=== PATIENT | male | born 1955 | race Caucasian/White ===

== ENCOUNTER 2017-04-27 17:32 | Inpatient (IN) | payer BC, OTHER ==
--- NOTE | 2017-04-27 17:43 | DR.GENAD ---
HPI - Complaint/Symptoms Chief Complaint Doctors Comments: According to family patient drinks on special occasions. Today he drank 3x32 oz of beer. He is now intoxicated and has been vomiting. He has alcoholic liver disease according to family member. PMH of hypertension PMH - PMH Past Medical History: Hypertension Past Surgical History: Yes Surgical History: Ortho Surgery, Tonsillectomy - Family History Family Medical History: Cancer, Heart Failure - Social History Do you use any recreational Drugs:: No ROS - Review of Systems Eyes: No Symptoms Reported ENTM: No Symptoms Reported Respiratoy: No Symptoms Reported Cardiovascular: No Symptoms Reported Gastrointestinal/Abdominal: No Symptoms Reported Genitourinary: No Symptoms Reported Neurological: No Symptoms Reported Musculoskeletal: No Symptoms Reported Integumentary: No Symptoms Reported Hematologic/Lymphatic: No Symptoms Reported Endocrine: No Symptoms Reported Psychiatric: No Symptoms Reported All Other Systems: Reviewed and Negative PE - Vital Signs Vitals: Temperature 98 F Pulse Rate [Right Brachial] 88 Pulse Rate 58 Respiratory Rate 18 Blood Pressure [Left Arm] 151/88 Blood Pressure 134/101 O2 Sat by Pulse Oximetry 100 - General Limitations: No Limitations General Appearance: Alert, In No Apparent Distress, Obtunded - Head Head Exam: Normal Inspection, Atraumatic - Eyes Eye exam: Normal Appearance, PERRL, EOMI - ENT ENT Exam: Normal Exam External Ear Exam: Normal External Inspection TM/Canal Exam: Bilateral Normal Nose Exam: Normal Nose Exam, Sinus Tenderness Mouth Exam: Normal Inspection Throat Exam: Normal Inspection - Neck Neck Exam: Normal Inspection, Trachea Midline - Chest Chest Inspection: Normal Inspection - Respiratory Respiratory Exam: Normal Lung Sounds Bilat Respiratory Exam: Bilateral Clear to Auscultation - Cardiovascular Cardiovascular Exam: Regular Rate, Normal Rhythm - Abdominal Exam Abdominal Exam: Normal Inspection, Normal Bowel Sounds Abdominal Tenderness: negative: RUQ, RLQ, LUQ, LLQ, Epigastrium, Suprapubic, Diffuse, Mild, Moderate, Severe, Other - Extremities Extremities Exam: Normal Inspection - Back Back Exam: Normal Inspection, Full ROM - Neurologic Neurological Exam: Alert, Oriented X3, CN II-XII Intact - Psychiatric Psychiatric Exam: Other (intoxicated.) - Skin Skin Exam: Warm, Dry, Intact Course - Consultation Called: 19:50 (Dr Fontana agreed to admit for further management) ROR - Labs Reviewed Result Diagrams: 04/27/17 18:05 04/27/17 18:05 Laboratory: WBC 13.7 X10^3/uL (3.6-10.0) H 04/27/17 18:05 RBC 3.73 X10^6/uL (4.7-6.0) L 04/27/17 18:05 Hgb 12.5 g/dL (13.5-18.0) L 04/27/17 18:05 Hct 34.0 % (42.0-54.0) L 04/27/17 18:05 MCV 91.3 fL (80.0-100.0) 04/27/17 18:05 MCH 33.6 pg (27.0-34.0) 04/27/17 18:05 MCHC 36.8 g/dL (33.0-35.0) H 04/27/17 18:05 RDW 13.7 % (11.6-16.5) 04/27/17 18:05 Plt Count 136 X10^3/uL (150.0-450.0) L 04/27/17 18:05 MPV 7.5 fL (7.4-11.0) 04/27/17 18:05 Neut % 83.9 % (42.0-75.0) H 04/27/17 18:05 Lymph % 5.2 % (21.0-51.0) L 04/27/17 18:05 [place] % 10.7 % (0.0-13.0) 04/27/17 18:05 Eos % 0.0 % (0.9-2.9) L 04/27/17 18:05 Baso % 0.2 % (0.2-1.0) 04/27/17 18:05 Neut # 11.5 x10^3/uL (2.2-4.8) H 04/27/17 18:05 Lymph # 0.7 X10^3/uL (1.3-2.9) L 04/27/17 18:05 [place] # 1.5 x10^3/uL (0.3-0.8) H 04/27/17 18:05 Eos # 0.0 x10^3/uL (0.0-0.2) 04/27/17 18:05 Baso # 0.0 X10^3/uL (0.0-0.1) 04/27/17 18:05 Absolute Nucleated RBC 0.0 /100WBC 04/27/17 18:05 Sodium 100 mmol/L (136-145) L* 04/27/17 18:05 Corrected Sodium TNP 04/27/17 18:05 Potassium 2.9 mmol/L (3.5-5.1) L* 04/27/17 18:05 Chloride 63 mmol/L (98-107) L* 04/27/17 18:05 Carbon Dioxide 26.7 mmol/L (21-32) 04/27/17 18:05 BUN 10 mg/dL (7-18) 04/27/17 18:05 Creatinine 0.75 mg/dL (0.70-1.30) 04/27/17 18:05 Est GFR (MDRD) Af Amer > 60 (>60) 04/27/17 18:05 Est GFR (MDRD) Non-Af > 60 (>60) 04/27/17 18:05 Glucose 97 mg/dL (65-99) 04/27/17 18:05 Calcium 8.0 mg/dL (8.5-10.1) L 04/27/17 18:05 Corrected Calcium TNP 04/27/17 18:05 Total Bilirubin 0.80 mg/dL (0.2-1.0) 04/27/17 18:05 AST 283 Units/L (15-37) H 04/27/17 18:05 ALT 109 Units/L (12-78) H 04/27/17 18:05 Alkaline Phosphatase 90 Units/L (46-116) 04/27/17 18:05 Total Protein 7.3 g/dL (6.4-8.2) 04/27/17 18:05 Albumin 3.5 g/dL (3.4-5.0) 04/27/17 18:05 Globulin 3.8 g/dL (2.5-4.5) 04/27/17 18:05 Albumin/Globulin Ratio 0.9 Ratio (1.1-2.1) L 04/27/17 18:05 TSH 3rd Generation 0.274 uIU/mL (0.358-3.74) L 04/27/17 18:05 Specimen Type Clean catch urine 04/27/17 19:19 Urine Color Yellow (YELLOW) 04/27/17 19:19 Urine Appearance Hazy (CLEAR) 04/27/17 19:19 Urine pH 6.5 (5.0 - 8.0) 04/27/17 19:19 Ur Specific [place] 1.010 (1.000-1.030) 04/27/17 19:19 Urine Protein 2+ (NEGATIVE) 04/27/17 19:19 Urine Glucose (UA) Negative (NEGATIVE) 04/27/17 19:19 Urine Ketones 3+ (NEGATIVE) 04/27/17 19:19 Urine Occult Blood 5+ (NEGATIVE) 04/27/17 19:19 Urine Nitrite Negative (NEGATIVE) 04/27/17 19:19 Urine Bilirubin Negative (NEGATIVE) 04/27/17 19:19 Urine Urobilinogen Normal (NORMAL) 04/27/17 19:19 Ur Leukocyte Esterase Negative (NEGATIVE) 04/27/17 19:19 Urine RBC 0-2 /HPF (NEGATIVE) 04/27/17 19:19 Urine WBC 0-2 /HPF (NEGATIVE) 04/27/17 19:19 Ur Squamous Epith Cells Negative /HPF (NEGATIVE) 04/27/17 19:19 Urine Bacteria Trace /HPF (NEGATIVE) 04/27/17 19:19 Ur Culture Indicated? No/not indicated 04/27/17 19:19 Urine Opiates Screen Positive (NEG=<300) 04/27/17 18:11 Urine Methadone Screen Negative (NEG=<300) 04/27/17 18:11 Ur Barbiturates Screen Negative (NEG=<200) 04/27/17 18:11 Ur Phencyclidine Scrn Negative (NEG=<25) 04/27/17 18:11 Ur Amphetamines Screen Negative (NEG=<1000) 04/27/17 18:11 U Benzodiazepines Scrn Positive (NEG=<200) 04/27/17 18:11 Urine Cocaine Screen Negative (NEG=<300) 04/27/17 18:11 U Marijuana (THC) Screen Negative (NEG=<50) 04/27/17 18:11 Ethyl Alcohol mg/dL 21 mg/dL (0-19.9) H 04/27/17 18:05 - XRAY XRAY Interpreted by: Radiologist (No acute cardiopulmonary disease) - Diagnosis Discharge Problem: Severe Hyponatremia, Hypokalemia, Hypocalcemia - Discharge Plan Condition: Stable - Follow ups/Referrals Follow ups/Referrals: DANIE DELCID [Primary Care Provider] - 3 days - Instructions
[2017-04-27] MEDS: NS 1000 ML 1,000 ML IV SCH (18:04)
[2017-04-27 18:22] LABS: BLOOD UREA NITROGEN 10 mg/dL (7-18); CARBON DIOXIDE 26.7 mmol/L (21-32); CREATININE 0.75 mg/dL (0.70-1.30); eGFR BLACK RACES > 60 (>60); eGFR NON BLACK RACES > 60 (>60)
[2017-04-27 18:26] LABS: ALANINE AMINOTRANSFERASE 109 Units/L (12-78); ALBUMIN 3.5 g/dL (3.4-5.0); ALKALINE PHOSPHATASE 90 Units/L (46-116); ASPARTATE AMINO TRANSFERASE 283 Units/L (15-37); BLOOD ALCOHOL 21 mg/dL (0-19.9); TOTAL PROTEIN 7.3 g/dL (6.4-8.2)
[2017-04-27 18:31] LABS: SODIUM 100 mmol/L (136-145)
[2017-04-27 18:32] LABS: CHLORIDE 63 mmol/L (98-107)
[2017-04-27] MEDS ORDERED: K-LYTE EFFERVESCENT ONE (18:41)
[2017-04-27] MEDS ORDERED: K-LYTE EFFERVESCENT PO ONE (18:51)
[2017-04-27 18:53] LABS: BASOPHILS % (AUTO) 0.2 % (0.2-1.0); HEMOGLOBIN 12.5 g/dL (13.5-18.0); LYMPHOCYTES # (AUTO) 0.7 X10^3/uL (1.3-2.9); LYMPHOCYTES % (AUTO) 5.2 % (21.0-51.0); MEAN CORPUSCULAR HEMOGLOBIN 33.6 pg (27.0-34.0); MEAN CORPUSCULAR HGB CONC 36.8 g/dL (33.0-35.0); MEAN CORPUSCULAR VOLUME 91.3 fL (80.0-100.0); MEAN PLATELET VOLUME 7.5 fL (7.4-11.0); MONOCYTES # (AUTO) 1.5 x10^3/uL (0.3-0.8); MONOCYTES % (AUTO) 10.7 % (0.0-13.0); NEUTROPHILS # (AUTO) 11.5 x10^3/uL (2.2-4.8); NEUTROPHILS % (AUTO) 83.9 % (42.0-75.0); PLATELET COUNT 136 X10^3/uL (150.0-450.0); RED BLOOD COUNT 3.73 X10^6/uL (4.7-6.0); RED CELL DISTRIBUTION WIDTH 13.7 % (11.6-16.5); WHITE BLOOD COUNT 13.7 X10^3/uL (3.6-10.0)
[2017-04-27 19:22] LABS: BILIRUBIN,URINE NEGATIVE (NEGATIVE); BLOOD/HEMOGLOBIN,URINE 5+ (NEGATIVE); GLUCOSE, URINE NEGATIVE (NEGATIVE); KETONES,URINE 3+ (NEGATIVE); LEUKOCYTE ESTERASE ,URINE NEGATIVE (NEGATIVE); NITRITES,URINE NEGATIVE (NEGATIVE); PH,URINE 6.5 (5.0 - 8.0); PROTEIN,URINE 2+ (NEGATIVE); UROBILINOGEN,URINE NORMAL (NORMAL)
[2017-04-27 19:25] LABS: APPEARANCE,URINE HAZY (CLEAR); BACTERIA,URINE TRACE /HPF (NEGATIVE); COLOR,URINE YELLOW (YELLOW); RBC,URINE 0-2 /HPF (NEGATIVE); SQUAMOUS EPITHELIAL CELL,UR NEGATIVE /HPF (NEGATIVE)
--- NOTE | 2017-04-27 19:42 | RAD ---
Chest, one-view Indication: Nausea and vomiting Comparison: None Findings: The heart size is normal. No focal consolidation, effusion or pneumothorax is identified. N o acute osseous abnormality is seen. Impression: No acute cardiopulmonary abnormality. Reported By:
[2017-04-27] MEDS ORDERED: SODIUM CHL HYPERTONIC ** 3% ** 500 ML IV ONE (20:00)
[2017-04-27 22:03] VITALS: BMI 29.7
[2017-04-27 22:13] LABS: BLOOD UREA NITROGEN 14 mg/dL (7-18); CALCIUM 7.5 mg/dL (8.5-10.1); CARBON DIOXIDE 27.9 mmol/L (21-32); CREATININE 0.69 mg/dL (0.70-1.30); eGFR BLACK RACES > 60 (>60); eGFR NON BLACK RACES > 60 (>60)
[2017-04-27 22:16] LABS: SODIUM 102 mmol/L (136-145)
[2017-04-27 22:17] LABS: CHLORIDE 66 mmol/L (98-107)
--- NOTE | 2017-04-27 22:31 | CT ---
CT HEAD WITHOUT CONTRAST CLINICAL HISTORY: 61-year-old male status post fall striking the back of his head. Headache, confusio n and slurred speech. COMPARISON: CT head 09/18/2014. TECHNIQUE: Multiple, non-contrasted axial CT images were obtained from the skull base to the cranial vertex. Coronal and sagittal reformats were performed. FINDINGS: There are no abnormal intra- or extra-axial fluid collections, midline shift, or mass effec t. Terry-white differentiation is normal. Global cortical involutional changes are present that are ad vanced for the patient's stated age. The ventricular system is mildly enlarged but commensurate with the degree of sulcal prominence. Periventricular and supraventricular white matter hypodensity is pre sent that is nonspecific in appearance, but most likely to represent microvascular ischemic changes. Atherosclerotic vascular calcification is present within the carotid siphons and distal vertebral art eries. Trace mucosal thickening of the right maxillary sinus with the remaining paranasal sinuses, mastoid a ir cells and tympanic cavities clear. IMPRESSION: 1. No definite evidence of an acute intracranial process. If clinical concern persists for acute stro ke, consider MRI/MRA brain. 2. Moderate microvascular white matter ischemic changes, with associated volume loss. Reported By:
[2017-04-28] MEDS ORDERED: K-LYTE EFFERVESCENT PO ONE ×2 (01:31→18:50)
[2017-04-28] MEDS ORDERED: ZOFRAN INJ 4 MG VIAL IVP PRN (01:58)
[2017-04-28] MEDS: ATIVAN INJ 2 MG VIAL IVP PRN ×2 (02:06→20:15)
[2017-04-28 02:31] LABS: BILIRUBIN,URINE NEGATIVE (NEGATIVE); BLOOD/HEMOGLOBIN,URINE 3+ (NEGATIVE); GLUCOSE, URINE NEGATIVE (NEGATIVE); KETONES,URINE 2+ (NEGATIVE); LEUKOCYTE ESTERASE ,URINE NEGATIVE (NEGATIVE); NITRITES,URINE NEGATIVE (NEGATIVE); PROTEIN,URINE 1+ (NEGATIVE); UROBILINOGEN,URINE NORMAL (NORMAL)
[2017-04-28 02:35] LABS: BLOOD UREA NITROGEN 14 mg/dL (7-18); CALCIUM 7.1 mg/dL (8.5-10.1); CARBON DIOXIDE 29.5 mmol/L (21-32); CREATININE 0.71 mg/dL (0.70-1.30); eGFR BLACK RACES > 60 (>60); eGFR NON BLACK RACES > 60 (>60)
[2017-04-28 02:47] LABS: CHLORIDE 71 mmol/L (98-107); SODIUM 106 mmol/L (136-145)
[2017-04-28 02:50] LABS: APPEARANCE,URINE CLEAR (CLEAR); BACTERIA,URINE NEGATIVE /HPF (NEGATIVE); COLOR,URINE YELLOW (YELLOW); SQUAMOUS EPITHELIAL CELL,UR RARE /HPF (NEGATIVE)
[2017-04-28] MEDS: NS 1000 ML 1,000 ML IV SCH ×3 (04:48→22:00)
[2017-04-28 06:17] LABS: ALANINE AMINOTRANSFERASE 91 Units/L (12-78); ALBUMIN 2.6 g/dL (3.4-5.0); ALKALINE PHOSPHATASE 69 Units/L (46-116); ASPARTATE AMINO TRANSFERASE 225 Units/L (15-37); BLOOD UREA NITROGEN 14 mg/dL (7-18); CALCIUM 7.1 mg/dL (8.5-10.1); COR CA(FOR HYPOALB) 8.2 mg/dL (8.5-10.1); CREATININE 0.66 mg/dL (0.70-1.30); TOTAL PROTEIN 5.5 g/dL (6.4-8.2); eGFR BLACK RACES > 60 (>60); eGFR NON BLACK RACES > 60 (>60)
[2017-04-28 06:49] LABS: SODIUM 108 mmol/L (136-145)
[2017-04-28 06:50] LABS: CHLORIDE 75 mmol/L (98-107)
[2017-04-28] MEDS ORDERED: K-LYTE EFFERVESCENT PO PRN (07:54)
[2017-04-28] MEDS ORDERED: POTASSIUM CHL 60 MEQ/NS 0.45% 500 ML IV PRN (07:54)
[2017-04-28] MEDS ORDERED: MAG-OX TAB PO PRN (07:54)
[2017-04-28] MEDS: MAGNESIUM SULFATE 1 GM/100 mL PREMIX 1 GM/100 ML BAG IV PRN ×2 (09:00→10:10)
[2017-04-28] MEDS ORDERED: SODIUM CHL HYPERTONIC ** 3% ** 500 ML IV ONE (10:00)
[2017-04-28] MEDS: PROTONIX INJ 40 MG VIAL 80 MG in NS 100 ML IV 80 ML IV SCH ×2 (10:11→20:25)
[2017-04-28] MEDS: POTASSIUM CHL 40 MEQ/NS 0.45% 500 ML IV PRN ×2 (12:07→20:24)
[2017-04-28] MEDS: NORCO 10/325 TAB PO PRN ×2 (13:33→20:14)
[2017-04-29] MEDS: K-RIDER 10 MEQ/NS 100 ML 10 MEQ/100 ML BAG IV PRN ×2 (03:48→04:56)
[2017-04-29] MEDS: NS 1000 ML 1,000 ML IV SCH ×3 (04:56→18:04)
[2017-04-29] MEDS: NORCO 10/325 TAB PO PRN ×3 (05:44→18:00)
[2017-04-29] MEDS: PROTONIX INJ 40 MG VIAL 80 MG in NS 100 ML IV 80 ML IV SCH ×2 (05:45→16:21)
[2017-04-29 07:55] LABS: ALANINE AMINOTRANSFERASE 68 Units/L (12-78); ALBUMIN 2.3 g/dL (3.4-5.0); ALKALINE PHOSPHATASE 62 Units/L (46-116); ASPARTATE AMINO TRANSFERASE 107 Units/L (15-37); BLOOD UREA NITROGEN 8 mg/dL (7-18); CALCIUM 6.6 mg/dL (8.5-10.1); CARBON DIOXIDE 25.8 mmol/L (21-32); CHLORIDE 88 mmol/L (98-107); CREATININE 0.61 mg/dL (0.70-1.30); eGFR BLACK RACES > 60 (>60); eGFR NON BLACK RACES > 60 (>60)
[2017-04-29 08:12] LABS: SODIUM 121 mmol/L (136-145)
[2017-04-29] MEDS ORDERED: NORCO 10/325 TAB PO PRN (09:37)
[2017-04-29] MEDS: CELEXA PO SCH (09:55)
[2017-04-29] MEDS: XANAX PO SCH ×2 (09:55→20:47)
[2017-04-29] MEDS: ARIMIDEX PO SCH (09:55)
[2017-04-29] MEDS: CYTOTEC PO SCH ×2 (09:56→20:47)
[2017-04-29] MEDS: SOMA TAB 350 MG PO SCH ×2 (09:56→20:47)
[2017-04-29] MEDS: POTASSIUM CHLORIDE LIQ 20 MEQ UDC PO PRN ×2 (12:50→16:27)
[2017-04-29 17:35] LABS: ALANINE AMINOTRANSFERASE 69 Units/L (12-78); ALBUMIN 2.5 g/dL (3.4-5.0); ALKALINE PHOSPHATASE 88 Units/L (46-116); ASPARTATE AMINO TRANSFERASE 89 Units/L (15-37); BLOOD UREA NITROGEN 6 mg/dL (7-18); CALCIUM 7.1 mg/dL (8.5-10.1); CARBON DIOXIDE 25.9 mmol/L (21-32); CHLORIDE 88 mmol/L (98-107); COR CA(FOR HYPOALB) 8.3 mg/dL (8.5-10.1); COR NA(FOR HYPERGLY) 122 mmol/L (136-145); CREATININE 0.75 mg/dL (0.70-1.30); TOTAL PROTEIN 5.6 g/dL (6.4-8.2); eGFR BLACK RACES > 60 (>60); eGFR NON BLACK RACES > 60 (>60)
[2017-04-29 17:38] LABS: SODIUM 122 mmol/L (136-145)
[2017-04-30] MEDS: NORCO 10/325 TAB PO PRN ×4 (00:03→22:17)
[2017-04-30] MEDS: NS 1000 ML 1,000 ML IV SCH ×3 (02:56→14:53)
[2017-04-30] MEDS: PROTONIX INJ 40 MG VIAL 80 MG in NS 100 ML IV 80 ML IV SCH ×2 (02:57→14:52)
[2017-04-30 05:27] LABS: BASOPHILS % (AUTO) 0.2 % (0.2-1.0); EOSINOPHILS # (AUTO) 0.1 x10^3/uL (0.0-0.2); EOSINOPHILS % (AUTO) 1.6 % (0.9-2.9); HEMOGLOBIN 9.7 g/dL (13.5-18.0); LYMPHOCYTES # (AUTO) 1.4 X10^3/uL (1.3-2.9); LYMPHOCYTES % (AUTO) 29.3 % (21.0-51.0); MEAN CORPUSCULAR HEMOGLOBIN 33.5 pg (27.0-34.0); MEAN CORPUSCULAR HGB CONC 35.9 g/dL (33.0-35.0); MEAN CORPUSCULAR VOLUME 93.5 fL (80.0-100.0); MEAN PLATELET VOLUME 7.8 fL (7.4-11.0); MONOCYTES # (AUTO) 0.7 x10^3/uL (0.3-0.8); MONOCYTES % (AUTO) 14.7 % (0.0-13.0); NEUTROPHILS # (AUTO) 2.6 x10^3/uL (2.2-4.8); NEUTROPHILS % (AUTO) 54.2 % (42.0-75.0); PLATELET COUNT 126 X10^3/uL (150.0-450.0); RED BLOOD COUNT 2.88 X10^6/uL (4.7-6.0); RED CELL DISTRIBUTION WIDTH 13.9 % (11.6-16.5); WHITE BLOOD COUNT 4.8 X10^3/uL (3.6-10.0)
[2017-04-30 05:52] LABS: ALANINE AMINOTRANSFERASE 62 Units/L (12-78); ALBUMIN 2.4 g/dL (3.4-5.0); ALKALINE PHOSPHATASE 71 Units/L (46-116); ASPARTATE AMINO TRANSFERASE 63 Units/L (15-37); BLOOD UREA NITROGEN 4 mg/dL (7-18); CARBON DIOXIDE 26.9 mmol/L (21-32); CHLORIDE 93 mmol/L (98-107); COR CA(FOR HYPOALB) 8.3 mg/dL (8.5-10.1); CREATININE 0.66 mg/dL (0.70-1.30); SODIUM 126 mmol/L (136-145); TOTAL PROTEIN 5.3 g/dL (6.4-8.2); eGFR BLACK RACES > 60 (>60); eGFR NON BLACK RACES > 60 (>60)
[2017-04-30] MEDS: ARIMIDEX PO SCH (09:44)
[2017-04-30] MEDS: SOMA TAB 350 MG PO SCH ×2 (09:45→21:32)
[2017-04-30] MEDS: CELEXA PO SCH (09:45)
[2017-04-30] MEDS: XANAX PO SCH ×2 (09:45→21:32)
[2017-04-30] MEDS: CYTOTEC PO SCH ×2 (09:45→21:30)
[2017-04-30] MEDS ORDERED: PHARMACY CONSULT - DOSE _____ XX SCH (12:00)
[2017-04-30] MEDS ORDERED: SODIUM CHL HYPERTONIC ** 3% ** 500 ML IV ONE (12:00)
[2017-04-30 18:00] LABS: BLOOD UREA NITROGEN 6 mg/dL (7-18); CALCIUM 7.3 mg/dL (8.5-10.1); CARBON DIOXIDE 27.4 mmol/L (21-32); CHLORIDE 96 mmol/L (98-107); COR NA(FOR HYPERGLY) 129 mmol/L (136-145); CREATININE 0.74 mg/dL (0.70-1.30); SODIUM 129 mmol/L (136-145); eGFR BLACK RACES > 60 (>60); eGFR NON BLACK RACES > 60 (>60)
[2017-05-01] MEDS: NS 1000 ML 1,000 ML IV SCH ×2 (00:50→02:51)
[2017-05-01] MEDS: PROTONIX INJ 40 MG VIAL 80 MG in NS 100 ML IV 80 ML IV SCH ×3 (00:50→09:45)
[2017-05-01 06:37] LABS: BLOOD UREA NITROGEN 5 mg/dL (7-18); CALCIUM 6.8 mg/dL (8.5-10.1); CARBON DIOXIDE 26.2 mmol/L (21-32); CHLORIDE 98 mmol/L (98-107); CREATININE 0.64 mg/dL (0.70-1.30); SODIUM 131 mmol/L (136-145); eGFR BLACK RACES > 60 (>60); eGFR NON BLACK RACES > 60 (>60)
[2017-05-01] MEDS ORDERED: NS + KCL 20 MEQ/L 1,000 ML IV SCH (09:00)
[2017-05-01] MEDS: POTASSIUM CHLORIDE LIQ 20 MEQ UDC PO PRN (09:37)
[2017-05-01] MEDS: ARIMIDEX PO SCH (09:37)
[2017-05-01] MEDS: SOMA TAB 350 MG PO SCH (09:38)
[2017-05-01] MEDS: NORCO 10/325 TAB PO PRN (09:38)
[2017-05-01] MEDS: CELEXA PO SCH (09:38)
[2017-05-01] MEDS: CYTOTEC PO SCH (09:38)
[2017-05-01] MEDS: XANAX PO SCH (09:45)
[2017-05-01 13:12] VITALS: BP 145/64
[2017-05-02 06:08] LABS: HCV VIRAL LOG <1.2 log IU
== END 2017-05-01 14:15 | disposition home or self-care (01) | DRG 948 ==
LOC: ER 17:43 → MED/SURG 19:58
PROVIDERS: ADMIT Internal Medicine; ATTEND Obstetrics & Gynecology Obstetrics
DX: R41.82 Altered mental status, unspecified (principal); E87.1 Hypo-osmolality and hyponatremia; E87.6 Hypokalemia; E83.51 Hypocalcemia; F10.20 Alcohol dependence, uncomplicated; K29.20 Alcoholic gastritis without bleeding; I10 Essential (primary) hypertension
CPT/HCPCS: 36415; 70450; 71010; 80048; 80053; 80307; 80320; 81001; 82270; 83735; 84132; 84425; 84443; 85025; 85610; 85730; 87045; 87427; 87493; 87522; 87899; 94760; 96365; 96367; 99283; 99284; A4222; C9113; S0170; S0191; G0434; G6040; J2060; J2405; J3480

== ENCOUNTER 2017-08-22 09:49 | Inpatient (IN) | payer BC, OTHER ==
--- NOTE | 2017-08-22 10:13 | DR.GENAD ---
HPI - PCP Primary Care Physician: DELCID - Complaint/Symptoms Chief Complaint Doctors Comments: Patient presents with complaint of vomiting and diarrhea for 4-5 days. He states that he vomits atleast ten dimes per day associated with diarrhea. He states that he gets weak due to low potassium. He denies taking anti-emetics. His past medical history is negative except for lo potassium due to vomiting. Chief Complaint:: PT. C/O WEAKNESS, N/V/D WITH AN ONSET OF LAST WEEK. PT. STATES HE THINKS HIS POTASSIUM AND SODIUM LEVELS ARE LOW. HE WAS HOSPITALIZED IN [place] FOR THIS AND STATES HE FEELS THE SAME WAY. - Source History Provided: Patient, Family Member - Mode of Arrival Mode of Arrival: Ambulatory - Timing Onset of Chief Complaint: 08/17/17 PMH - PMH Past Medical History: Yes Past Medical History: Hypertension Past Surgical History: Yes Surgical History: Ortho Surgery, Tonsillectomy - Family History History of Family Medical Conditions: Yes Family Medical History: Diabetes Mellitus, Cancer, PA, Coronary Artery Disease, Heart Failure, Sudden Cardiac , Hypertension - Social History Does patient currently use any type of tobacco product: No Have you used tobacco products in the last 12 months: No Type of Tobacco Use: None Does any household member use tobacco: No Alcohol Use: Heavy Do you use any recreational Drugs:: No Lives With: Spouse Lives Where: Home - infectious screening In the last 2 months have you had wt loss of >10#?: NO Have you had fever, night sweats or hemotysis?: No Have you traveled outside the country in the last 6 months?: No Isolation: Standard ROS - Review of Systems Eyes: No Symptoms Reported ENTM: No Symptoms Reported Respiratoy: No Symptoms Reported Cardiovascular: No Symptoms Reported Gastrointestinal/Abdominal: Diarrhea, Nausea, Vomiting Neurological: Weakness (due to vomiting) Musculoskeletal: No Symptoms Reported Integumentary: Change in Color (ecchymosis), Bruises Hematologic/Lymphatic: No Symptoms Reported Endocrine: No Symptoms Reported Psychiatric: No Symptoms Reported All Other Systems: Reviewed and Negative PE - Vital Signs Vitals: Temperature 98.6 F Pulse Rate [Apical] 76 Pulse Rate 84 Respiratory Rate 14 Blood Pressure [Right Arm] 145/64 Blood Pressure [Left Arm] 135/73 Blood Pressure 137/76 O2 Sat by Pulse Oximetry 100 - General Limitations: No Limitations General Appearance: Alert, In No Apparent Distress - Head Head Exam: Normal Inspection, Atraumatic - Eyes Eye exam: Normal Appearance, PERRL, EOMI - ENT ENT Exam: Mucous Membranes Dry External Ear Exam: Normal External Inspection TM/Canal Exam: Bilateral Normal Nose Exam: Normal Nose Exam Mouth Exam: Normal Inspection Throat Exam: Normal Inspection - Neck Neck Exam: Normal Inspection, Full ROM - Chest Chest Inspection: Normal Inspection - Respiratory Respiratory Exam: Normal Lung Sounds Bilat Respiratory Exam: Bilateral Clear to Auscultation - Cardiovascular Cardiovascular Exam: Regular Rate, Normal Rhythm - Abdominal Exam Abdominal Exam: Normal Inspection, Distention Abdominal Tenderness: RLQ - Extremities Extremities Exam: Normal Inspection, Full ROM - Back Back Exam: Normal Inspection - Neurologic Neurological Exam: Alert, Oriented X3, CN II-XII Intact - Psychiatric Psychiatric Exam: Normal Affect - Skin Skin Exam: Warm, Dry, Rash (ecchymosis) Course - Consultation Called: 11:00 (Dr Delcid agreed to admit for further evaluation and treatment) ROR - Labs Reviewed Result Diagrams: 08/22/17 10:30 08/22/17 10:30 Laboratory: WBC 8.9 X10^3/uL (3.6-10.0) 08/22/17 10:30 RBC 3.36 X10^6/uL (4.7-6.0) L 08/22/17 10:30 Hgb 9.6 g/dL (13.5-18.0) L 08/22/17 10:30 Hct 28.3 % (42.0-54.0) L 08/22/17 10:30 MCV 84.3 fL (80.0-100.0) 08/22/17 10:30 MCH 28.7 pg (27.0-34.0) 08/22/17 10:30 MCHC 34.0 g/dL (33.0-35.0) 08/22/17 10:30 RDW 16.5 % (11.6-16.5) 08/22/17 10:30 Plt Count 171 X10^3/uL (150.0-450.0) 08/22/17 10:30 MPV 7.5 fL (7.4-11.0) 08/22/17 10:30 Neut % (Auto) 80.6 % (42.0-75.0) H 08/22/17 10:30 Lymph % (Auto) 7.3 % (21.0-51.0) L 08/22/17 10:30 [place] % (Auto) 11.8 % (0.0-13.0) 08/22/17 10:30 Eos % (Auto) 0.0 % (0.9-2.9) L 08/22/17 10:30 Baso % (Auto) 0.3 % (0.2-1.0) 08/22/17 10:30 Neut # (Auto) 7.2 x10^3/uL (2.2-4.8) H 08/22/17 10:30 Lymph # (Auto) 0.7 X10^3/uL (1.3-2.9) L 08/22/17 10:30 [place] # (Auto) 1.1 x10^3/uL (0.3-0.8) H 08/22/17 10:30 Eos # (Auto) 0.0 x10^3/uL (0.0-0.2) 08/22/17 10:30 Baso # (Auto) 0.0 X10^3/uL (0.0-0.1) 08/22/17 10:30 Absolute Nucleated RBC 0.0 /100WBC 08/22/17 10:30 Sodium 110 mmol/L (136-145) L* 08/22/17 10:30 Corrected Sodium TNP 08/22/17 10:30 Potassium 3.1 mmol/L (3.5-5.1) L 08/22/17 10:30 Chloride 71 mmol/L (98-107) L* 08/22/17 10:30 Carbon Dioxide 30.2 mmol/L (21-32) 08/22/17 10:30 BUN 14 mg/dL (7-18) 08/22/17 10:30 Creatinine 0.92 mg/dL (0.70-1.30) 08/22/17 10:30 Est GFR (MDRD) Af Amer > 60 (>60) 08/22/17 10:30 Est GFR (MDRD) Non-Af > 60 (>60) 08/22/17 10:30 Glucose 97 mg/dL (65-99) 08/22/17 10:30 Calcium 7.4 mg/dL (8.5-10.1) L 08/22/17 10:30 Corrected Calcium 8.1 mg/dL (8.5-10.1) L 08/22/17 10:30 Total Bilirubin 0.50 mg/dL (0.2-1.0) 08/22/17 10:30 AST 92 Units/L (15-37) H 08/22/17 10:30 ALT 60 Units/L (12-78) 08/22/17 10:30 Alkaline Phosphatase 109 Units/L (46-116) 08/22/17 10:30 C-Reactive Protein 22.70 mg/L (0-3.0) H 08/22/17 10:30 Total Protein 6.5 g/dL (6.4-8.2) 08/22/17 10:30 Albumin 3.1 g/dL (3.4-5.0) L 08/22/17 10:30 Globulin 3.4 g/dL (2.5-4.5) 08/22/17 10:30 Albumin/Globulin Ratio 0.9 Ratio (1.1-2.1) L 08/22/17 10:30 - Diagnosis Discharge Problem: Hypochloremia, Hyponatremia, Hypokalemia - Discharge Plan Condition: Stable - Follow ups/Referrals Follow ups/Referrals: DANIE DELCID [Primary Care Provider] - 3 days - Instructions
[2017-08-22] MEDS ORDERED: NS 1000 ML 1,000 ML ONE (10:32)
[2017-08-22 10:37] LABS: BASOPHILS % (AUTO) 0.3 % (0.2-1.0); HEMATOCRIT 28.3 % (42.0-54.0); HEMOGLOBIN 9.6 g/dL (13.5-18.0); LYMPHOCYTES # (AUTO) 0.7 X10^3/uL (1.3-2.9); LYMPHOCYTES % (AUTO) 7.3 % (21.0-51.0); MEAN CORPUSCULAR HEMOGLOBIN 28.7 pg (27.0-34.0); MEAN CORPUSCULAR VOLUME 84.3 fL (80.0-100.0); MEAN PLATELET VOLUME 7.5 fL (7.4-11.0); MONOCYTES # (AUTO) 1.1 x10^3/uL (0.3-0.8); MONOCYTES % (AUTO) 11.8 % (0.0-13.0); NEUTROPHILS # (AUTO) 7.2 x10^3/uL (2.2-4.8); NEUTROPHILS % (AUTO) 80.6 % (42.0-75.0); PLATELET COUNT 171 X10^3/uL (150.0-450.0); RED BLOOD COUNT 3.36 X10^6/uL (4.7-6.0); RED CELL DISTRIBUTION WIDTH 16.5 % (11.6-16.5); WHITE BLOOD COUNT 8.9 X10^3/uL (3.6-10.0)
[2017-08-22 10:42] LABS: BLOOD UREA NITROGEN 14 mg/dL (7-18); CALCIUM 7.4 mg/dL (8.5-10.1); CARBON DIOXIDE 30.2 mmol/L (21-32); CREATININE 0.92 mg/dL (0.70-1.30); eGFR BLACK RACES > 60 (>60); eGFR NON BLACK RACES > 60 (>60)
[2017-08-22 10:46] LABS: ALANINE AMINOTRANSFERASE 60 Units/L (12-78); ALBUMIN 3.1 g/dL (3.4-5.0); ALKALINE PHOSPHATASE 109 Units/L (46-116); ASPARTATE AMINO TRANSFERASE 92 Units/L (15-37); COR CA(FOR HYPOALB) 8.1 mg/dL (8.5-10.1); TOTAL PROTEIN 6.5 g/dL (6.4-8.2)
[2017-08-22] MEDS ORDERED: ZOFRAN INJ 4 MG VIAL IVP ONE (10:56)
[2017-08-22] MEDS ORDERED: ZOFRAN INJ 4 MG VIAL ONE (10:57)
[2017-08-22 10:58] LABS: SODIUM 110 mmol/L (136-145)
[2017-08-22 10:59] LABS: CHLORIDE 71 mmol/L (98-107)
[2017-08-22] MEDS ORDERED: NS 1000 ML 1,000 ML IV SCH (11:00)
[2017-08-22] MEDS: NS 1000 ML 1,000 ML with POTASSIUM CHLORIDE INJ 30 MEQ VIAL 30 MEQ IV SCH ×2 (12:20)
[2017-08-22] MEDS: HEMOCYTE-PLUS PO SCH (13:56)
[2017-08-22] MEDS: ZOFRAN INJ 4 MG VIAL IVP PRN ×3 (15:05→22:51)
[2017-08-22] MEDS: MAALOX or MYLANTA PO PRN (16:21)
[2017-08-22 17:18] LABS: BLOOD UREA NITROGEN 11 mg/dL (7-18); CALCIUM 7.1 mg/dL (8.5-10.1); CARBON DIOXIDE 33.5 mmol/L (21-32); CREATININE 0.85 mg/dL (0.70-1.30); eGFR BLACK RACES > 60 (>60); eGFR NON BLACK RACES > 60 (>60)
[2017-08-22 17:28] LABS: SODIUM 112 mmol/L (136-145)
[2017-08-22 17:29] LABS: CHLORIDE 75 mmol/L (98-107)
[2017-08-22] MEDS ORDERED: POTASSIUM CHLORIDE LIQ 20 MEQ UDC PO PRN (18:30)
[2017-08-22] MEDS ORDERED: K-RIDER 10 MEQ/NS 100 ML 10 MEQ/100 ML BAG IV PRN (18:30)
[2017-08-22] MEDS ORDERED: POTASSIUM CHL 40 MEQ/NS 0.45% 500 ML IV PRN (18:30)
[2017-08-22] MEDS ORDERED: K-LYTE EFFERVESCENT PO PRN (18:30)
[2017-08-22] MEDS: NORCO 10/325 TAB PO PRN (19:57)
[2017-08-22] MEDS: SOMA TAB 350 MG PO PRN (19:57)
[2017-08-22] MEDS: XANAX PO PRN (19:57)
[2017-08-22] MEDS: MAGNESIUM SULFATE 1 GM/100 mL PREMIX 1 GM/100 ML BAG IV PRN ×2 (20:18→21:16)
[2017-08-22 20:51] LABS: BLOOD UREA NITROGEN 11 mg/dL (7-18); CALCIUM 6.8 mg/dL (8.5-10.1); CARBON DIOXIDE 26.9 mmol/L (21-32); COR NA(FOR HYPERGLY) 111 mmol/L (136-145); CREATININE 0.87 mg/dL (0.70-1.30); eGFR BLACK RACES > 60 (>60); eGFR NON BLACK RACES > 60 (>60)
[2017-08-22 21:02] LABS: SODIUM 110 mmol/L (136-145)
[2017-08-22 21:03] LABS: CHLORIDE 76 mmol/L (98-107)
[2017-08-22] MEDS ORDERED: SODIUM CHL HYPERTONIC ** 3% ** 500 ML IV ONE (22:00)
[2017-08-22] MEDS ORDERED: PHARMACY CONSULT - DOSE _____ XX SCH (22:00)
[2017-08-22] MEDS: POTASSIUM CHL 60 MEQ/NS 0.45% 500 ML IV PRN (22:20)
[2017-08-23] MEDS: ATIVAN INJ 2 MG VIAL IVP PRN ×4 (00:19→21:45)
[2017-08-23 00:26] LABS: BLOOD UREA NITROGEN 10 mg/dL (7-18); CARBON DIOXIDE 26.3 mmol/L (21-32); CREATININE 0.83 mg/dL (0.70-1.30); eGFR BLACK RACES > 60 (>60); eGFR NON BLACK RACES > 60 (>60)
[2017-08-23 00:33] LABS: CHLORIDE 79 mmol/L (98-107); SODIUM 112 mmol/L (136-145)
[2017-08-23] MEDS: NS 1000 ML 1,000 ML with POTASSIUM CHLORIDE INJ 30 MEQ VIAL 30 MEQ IV SCH ×4 (01:56→20:24)
[2017-08-23] MEDS: NORCO 10/325 TAB PO PRN ×4 (02:00→20:22)
[2017-08-23 05:50] LABS: BASOPHILS % (AUTO) 0 % (0.2-1.0); HEMATOCRIT 28.3 % (42.0-54.0); HEMOGLOBIN 9.7 g/dL (13.5-18.0); LYMPHOCYTES # (AUTO) 0.8 X10^3/uL (1.3-2.9); LYMPHOCYTES % (AUTO) 9.1 % (21.0-51.0); MEAN CORPUSCULAR HEMOGLOBIN 29.1 pg (27.0-34.0); MEAN CORPUSCULAR HGB CONC 34.1 g/dL (33.0-35.0); MEAN CORPUSCULAR VOLUME 85.3 fL (80.0-100.0); MEAN PLATELET VOLUME 8.4 fL (7.4-11.0); MONOCYTES # (AUTO) 1.2 x10^3/uL (0.3-0.8); MONOCYTES % (AUTO) 12.8 % (0.0-13.0); NEUTROPHILS # (AUTO) 7.1 x10^3/uL (2.2-4.8); NEUTROPHILS % (AUTO) 78.1 % (42.0-75.0); PLATELET COUNT 164 X10^3/uL (150.0-450.0); RED BLOOD COUNT 3.32 X10^6/uL (4.7-6.0); RED CELL DISTRIBUTION WIDTH 16.6 % (11.6-16.5); WHITE BLOOD COUNT 9.2 X10^3/uL (3.6-10.0)
[2017-08-23 06:08] LABS: ALANINE AMINOTRANSFERASE 56 Units/L (12-78); ALKALINE PHOSPHATASE 113 Units/L (46-116); ASPARTATE AMINO TRANSFERASE 85 Units/L (15-37); BLOOD UREA NITROGEN 9 mg/dL (7-18); CARBON DIOXIDE 25.1 mmol/L (21-32); CHLORIDE 83 mmol/L (98-107); COR CA(FOR HYPOALB) 7.8 mg/dL (8.5-10.1); CREATININE 0.82 mg/dL (0.70-1.30); MAGNESIUM 2.1 mg/dL (1.7-2.9); TOTAL PROTEIN 6.7 g/dL (6.4-8.2); eGFR BLACK RACES > 60 (>60); eGFR NON BLACK RACES > 60 (>60)
[2017-08-23 06:16] LABS: SODIUM 117 mmol/L (136-145)
[2017-08-23] MEDS: POTASSIUM CHL 60 MEQ/NS 0.45% 500 ML IV PRN ×2 (06:21→21:47)
--- NOTE | 2017-08-23 06:45 | RAD ---
HISTORY: Weakness Study: Chest AP portable Comparison: 04/27/2017 Findings: The heart is within normal limits in size. The corazon are normal. The lungs are well inflated and clear . The bony thorax is intact. IMPRESSION: Lungs clear Reported By:
[2017-08-23] MEDS ORDERED: XANAX PO PRN (08:28)
[2017-08-23] MEDS ORDERED: LEXAPRO ONE (08:28)
[2017-08-23] MEDS ORDERED: SOMA TAB 350 MG PO PRN (08:28)
[2017-08-23] MEDS ORDERED: NORCO 10/325 TAB PO PRN (08:28)
[2017-08-23] MEDS: ARIMIDEX PO SCH (08:41)
[2017-08-23] MEDS: HEMOCYTE-PLUS PO SCH (08:42)
[2017-08-23] MEDS: SOMA TAB 350 MG PO PRN (08:47)
[2017-08-23] MEDS ORDERED: CELEXA PO SCH (09:00)
[2017-08-23] MEDS ORDERED: PATIENT'S HOME MEDICATION (Escitalopram Oxalate [Escitalopram Oxalate] 20 MG) PO SCH (09:00)
[2017-08-23] MEDS ORDERED: LEXAPRO PO SCH (09:00)
[2017-08-23] MEDS ORDERED: WELLBUTRIN SR 150 MG (BID) PO SCH (09:00)
[2017-08-23] MEDS ORDERED: SODIUM CHL HYPERTONIC ** 3% ** 500 ML IV ONE (10:00)
[2017-08-23] MEDS: WELLBUTRIN IR (PLAIN) PO SCH (10:53)
[2017-08-23 13:50] VITALS: BMI 31.1
[2017-08-23] MEDS: XANAX PO PRN ×2 (15:00→20:24)
[2017-08-23] MEDS: SOMA TAB 350 MG PO SCH (20:23)
[2017-08-23] MEDS ORDERED: HALDOL INJ IM PRN (23:50)
[2017-08-24] MEDS ORDERED: ATIVAN INJ 2 MG VIAL IVP ONE (02:33)
[2017-08-24 06:20] LABS: BASOPHILS % (AUTO) 0.2 % (0.2-1.0); EOSINOPHILS % (AUTO) 0.1 % (0.9-2.9); HEMATOCRIT 25.8 % (42.0-54.0); HEMOGLOBIN 8.7 g/dL (13.5-18.0); LYMPHOCYTES # (AUTO) 0.7 X10^3/uL (1.3-2.9); MEAN CORPUSCULAR HGB CONC 33.8 g/dL (33.0-35.0); MEAN CORPUSCULAR VOLUME 85.8 fL (80.0-100.0); MEAN PLATELET VOLUME 7.9 fL (7.4-11.0); MONOCYTES # (AUTO) 1.1 x10^3/uL (0.3-0.8); NEUTROPHILS # (AUTO) 4.8 x10^3/uL (2.2-4.8); NEUTROPHILS % (AUTO) 72.7 % (42.0-75.0); PLATELET COUNT 155 X10^3/uL (150.0-450.0); RED BLOOD COUNT 3.01 X10^6/uL (4.7-6.0); RED CELL DISTRIBUTION WIDTH 16.7 % (11.6-16.5); WHITE BLOOD COUNT 6.6 X10^3/uL (3.6-10.0)
[2017-08-24 07:13] LABS: ALANINE AMINOTRANSFERASE 53 Units/L (12-78); ALBUMIN 2.9 g/dL (3.4-5.0); ALKALINE PHOSPHATASE 102 Units/L (46-116); ASPARTATE AMINO TRANSFERASE 80 Units/L (15-37); BLOOD UREA NITROGEN 5 mg/dL (7-18); CALCIUM 7.4 mg/dL (8.5-10.1); CARBON DIOXIDE 24.5 mmol/L (21-32); CHLORIDE 87 mmol/L (98-107); COR CA(FOR HYPOALB) 8.3 mg/dL (8.5-10.1); CREATININE 0.64 mg/dL (0.70-1.30); TOTAL PROTEIN 6.4 g/dL (6.4-8.2); eGFR BLACK RACES > 60 (>60); eGFR NON BLACK RACES > 60 (>60)
[2017-08-24 07:17] LABS: SODIUM 120 mmol/L (136-145)
[2017-08-24] MEDS ORDERED: MILK OF MAGNESIA PO PRN (09:03)
[2017-08-24] MEDS ORDERED: MOTRIN TAB 800 MG PO PRN (09:03)
[2017-08-24] MEDS ORDERED: LIBRIUM PO PRN (09:03)
[2017-08-24] MEDS ORDERED: KAOPECTATE (NEW FORMULA) PO PRN (09:03)
[2017-08-24] MEDS ORDERED: PHENOBARBITAL SODIUM INJ 65 MG VIAL IM PRN (09:03)
[2017-08-24] MEDS: ATIVAN INJ 2 MG VIAL IVP PRN (09:15)
[2017-08-24] MEDS: MAGNESIUM SULFATE 50% INJ IM SCH ×2 (11:16→18:21)
[2017-08-24] MEDS: ARIMIDEX PO SCH (11:22)
[2017-08-24] MEDS: NS 1000 ML 1,000 ML with POTASSIUM CHLORIDE INJ 30 MEQ VIAL 30 MEQ IV SCH ×4 (11:22→14:13)
[2017-08-24] MEDS: HEMOCYTE-PLUS PO SCH (11:23)
[2017-08-24] MEDS: WELLBUTRIN IR (PLAIN) PO SCH (11:23)
[2017-08-24] MEDS: PHENOBARBITAL TAB 30 MG (32.4MG) PO SCH ×3 (13:50→20:56)
[2017-08-24 15:31] LABS: BLOOD UREA NITROGEN 6 mg/dL (7-18); CALCIUM 7.5 mg/dL (8.5-10.1); CHLORIDE 89 mmol/L (98-107); CREATININE 0.59 mg/dL (0.70-1.30); eGFR BLACK RACES > 60 (>60); eGFR NON BLACK RACES > 60 (>60)
[2017-08-24 15:34] LABS: SODIUM 123 mmol/L (136-145)
[2017-08-24] MEDS ORDERED: SODIUM CHL HYPERTONIC ** 3% ** 500 ML IV ONE (16:00)
[2017-08-24] MEDS: NS + KCL 40 MEQ/L 1,000 ML IV SCH (16:16)
[2017-08-24] MEDS: ZOFRAN INJ 4 MG VIAL IVP PRN (18:47)
[2017-08-24] MEDS: XANAX PO PRN (20:56)
[2017-08-24] MEDS: NORCO 10/325 TAB PO PRN (20:56)
[2017-08-24] MEDS: SOMA TAB 350 MG PO SCH (20:56)
[2017-08-24] MEDS: AMBIEN PO SCH (20:57)
[2017-08-25 01:27] LABS: BLOOD UREA NITROGEN 6 mg/dL (7-18); CALCIUM 6.9 mg/dL (8.5-10.1); CARBON DIOXIDE 24.6 mmol/L (21-32); CHLORIDE 90 mmol/L (98-107); COR NA(FOR HYPERGLY) 124 mmol/L (136-145); CREATININE 0.69 mg/dL (0.70-1.30); eGFR BLACK RACES > 60 (>60); eGFR NON BLACK RACES > 60 (>60)
[2017-08-25 01:29] LABS: SODIUM 124 mmol/L (136-145)
[2017-08-25] MEDS: MAGNESIUM SULFATE 50% INJ IM SCH ×3 (02:41→17:59)
[2017-08-25] MEDS: NS + KCL 40 MEQ/L 1,000 ML IV SCH ×3 (05:13→21:55)
[2017-08-25] MEDS: NORCO 10/325 TAB PO PRN ×2 (05:20→21:03)
[2017-08-25 07:29] LABS: BLOOD UREA NITROGEN 6 mg/dL (7-18); CALCIUM 7.4 mg/dL (8.5-10.1); CARBON DIOXIDE 24.4 mmol/L (21-32); CHLORIDE 90 mmol/L (98-107); COR NA(FOR HYPERGLY) 127 mmol/L (136-145); CREATININE 0.83 mg/dL (0.70-1.30); SODIUM 126 mmol/L (136-145); eGFR BLACK RACES > 60 (>60); eGFR NON BLACK RACES > 60 (>60)
[2017-08-25] MEDS: ZOFRAN INJ 4 MG VIAL IVP PRN ×4 (08:35→21:59)
[2017-08-25] MEDS: HEMOCYTE-PLUS PO SCH (08:37)
[2017-08-25] MEDS: ARIMIDEX PO SCH (08:37)
[2017-08-25] MEDS: PHENOBARBITAL TAB 30 MG (32.4MG) PO SCH ×4 (08:37→21:03)
[2017-08-25] MEDS: WELLBUTRIN IR (PLAIN) PO SCH (08:38)
[2017-08-25] MEDS: THIAMINE HCL INJ IM SCH (08:38)
[2017-08-25] MEDS ORDERED: PHARMACY CONSULT - DOSE _____ XX SCH (09:00)
[2017-08-25] MEDS ORDERED: DEXFERRUM or INFED 25 MG in NS 100 ML IV 100 ML IV ONE (11:00)
[2017-08-25] MEDS ORDERED: DEXFERRUM or INFED 1,000 MG in NS 500 ML IV 500 ML IV ONE (12:00)
[2017-08-25] MEDS: K-DUR TAB 20 MEQ PO SCH ×4 (12:12→21:04)
[2017-08-25 15:14] LABS: BLOOD UREA NITROGEN 9 mg/dL (7-18); CALCIUM 7.1 mg/dL (8.5-10.1); CARBON DIOXIDE 26.6 mmol/L (21-32); CHLORIDE 93 mmol/L (98-107); COR NA(FOR HYPERGLY) 128 mmol/L (136-145); CREATININE 0.78 mg/dL (0.70-1.30); SODIUM 128 mmol/L (136-145); eGFR BLACK RACES > 60 (>60); eGFR NON BLACK RACES > 60 (>60)
[2017-08-25] MEDS: MAALOX or MYLANTA PO PRN (16:59)
[2017-08-25] MEDS: AMBIEN PO SCH (21:04)
[2017-08-25] MEDS: ATIVAN INJ 2 MG VIAL IVP PRN (22:02)
[2017-08-26] MEDS: MAGNESIUM SULFATE 50% INJ IM SCH (03:18)
[2017-08-26 05:55] LABS: BLOOD UREA NITROGEN 6 mg/dL (7-18); CALCIUM 7.1 mg/dL (8.5-10.1); CARBON DIOXIDE 23.7 mmol/L (21-32); CHLORIDE 97 mmol/L (98-107); COR NA(FOR HYPERGLY) 132 mmol/L (136-145); SODIUM 131 mmol/L (136-145); eGFR BLACK RACES > 60 (>60); eGFR NON BLACK RACES > 60 (>60)
[2017-08-26 06:19] LABS: BASOPHILS # (AUTO) 0.1 X10^3/uL (0.0-0.1); EOSINOPHILS % (AUTO) 0.5 % (0.9-2.9); HEMATOCRIT 28.3 % (42.0-54.0); HEMOGLOBIN 9.6 g/dL (13.5-18.0); LYMPHOCYTES # (AUTO) 0.9 X10^3/uL (1.3-2.9); LYMPHOCYTES % (AUTO) 15.8 % (21.0-51.0); MEAN CORPUSCULAR HEMOGLOBIN 29.5 pg (27.0-34.0); MEAN CORPUSCULAR VOLUME 86.8 fL (80.0-100.0); MEAN PLATELET VOLUME 7.9 fL (7.4-11.0); NEUTROPHILS # (AUTO) 3.7 x10^3/uL (2.2-4.8); NEUTROPHILS % (AUTO) 64.7 % (42.0-75.0); PLATELET COUNT 258 X10^3/uL (150.0-450.0); RED BLOOD COUNT 3.26 X10^6/uL (4.7-6.0); RED CELL DISTRIBUTION WIDTH 17.1 % (11.6-16.5); WHITE BLOOD COUNT 5.7 X10^3/uL (3.6-10.0)
[2017-08-26] MEDS: NORCO 10/325 TAB PO PRN ×3 (08:15→22:37)
[2017-08-26] MEDS: THIAMINE HCL INJ IM SCH (09:05)
[2017-08-26] MEDS: ARIMIDEX PO SCH (09:05)
[2017-08-26] MEDS: HEMOCYTE-PLUS PO SCH (09:06)
[2017-08-26] MEDS: K-DUR TAB 20 MEQ PO SCH ×4 (09:06→21:05)
[2017-08-26] MEDS: WELLBUTRIN IR (PLAIN) PO SCH (09:06)
[2017-08-26] MEDS: ATIVAN INJ 2 MG VIAL IVP PRN ×2 (11:43→21:06)
[2017-08-26] MEDS: NS + KCL 40 MEQ/L 1,000 ML IV SCH ×3 (14:30→22:27)
[2017-08-26] MEDS: AMBIEN PO SCH (21:04)
[2017-08-27] MEDS: K-DUR TAB 20 MEQ PO SCH ×3 (01:34→09:57)
[2017-08-27] MEDS: NS + KCL 40 MEQ/L 1,000 ML IV SCH (03:38)
[2017-08-27] MEDS: NORCO 10/325 TAB PO PRN (05:32)
[2017-08-27 06:27] LABS: BASOPHILS % (AUTO) 0.3 % (0.2-1.0); EOSINOPHILS # (AUTO) 0.2 x10^3/uL (0.0-0.2); EOSINOPHILS % (AUTO) 2.5 % (0.9-2.9); HEMATOCRIT 29.3 % (42.0-54.0); HEMOGLOBIN 9.9 g/dL (13.5-18.0); LYMPHOCYTES # (AUTO) 1.4 X10^3/uL (1.3-2.9); LYMPHOCYTES % (AUTO) 19.6 % (21.0-51.0); MEAN CORPUSCULAR HEMOGLOBIN 29.4 pg (27.0-34.0); MEAN CORPUSCULAR HGB CONC 33.7 g/dL (33.0-35.0); MEAN CORPUSCULAR VOLUME 87.2 fL (80.0-100.0); MEAN PLATELET VOLUME 7.8 fL (7.4-11.0); MONOCYTES # (AUTO) 1.4 x10^3/uL (0.3-0.8); MONOCYTES % (AUTO) 19.4 % (0.0-13.0); NEUTROPHILS # (AUTO) 4.2 x10^3/uL (2.2-4.8); NEUTROPHILS % (AUTO) 58.2 % (42.0-75.0); PLATELET COUNT 336 X10^3/uL (150.0-450.0); RED BLOOD COUNT 3.36 X10^6/uL (4.7-6.0); RED CELL DISTRIBUTION WIDTH 17.3 % (11.6-16.5); WHITE BLOOD COUNT 7.2 X10^3/uL (3.6-10.0)
[2017-08-27 06:44] LABS: ALANINE AMINOTRANSFERASE 49 Units/L (12-78); ALBUMIN 2.8 g/dL (3.4-5.0); ALKALINE PHOSPHATASE 115 Units/L (46-116); BLOOD UREA NITROGEN 6 mg/dL (7-18); CALCIUM 7.8 mg/dL (8.5-10.1); CARBON DIOXIDE 23.3 mmol/L (21-32); CHLORIDE 100 mmol/L (98-107); COR CA(FOR HYPOALB) 8.8 mg/dL (8.5-10.1); CREATININE 0.67 mg/dL (0.70-1.30); SODIUM 133 mmol/L (136-145); TOTAL PROTEIN 6.4 g/dL (6.4-8.2); eGFR BLACK RACES > 60 (>60); eGFR NON BLACK RACES > 60 (>60)
[2017-08-27 06:50] LABS: ASPARTATE AMINO TRANSFERASE 55 Units/L (15-37)
[2017-08-27] MEDS ORDERED: PHENOBARBITAL TAB 15 MG (16.2MG) PO SCH (09:03)
[2017-08-27] MEDS: ARIMIDEX PO SCH (09:56)
[2017-08-27] MEDS: ATIVAN INJ 2 MG VIAL IVP PRN (09:57)
[2017-08-27] MEDS: HEMOCYTE-PLUS PO SCH (09:57)
[2017-08-27] MEDS: THIAMINE HCL INJ IM SCH (09:58)
[2017-08-27 15:26] VITALS: BP 173/95
== END 2017-08-27 12:55 | disposition home or self-care (01) | DRG 392 ==
LOC: ER 09:57 → MED/SURG 11:42
PROVIDERS: ADMIT Obstetrics & Gynecology Obstetrics; ATTEND Obstetrics & Gynecology Obstetrics
DX: K52.89 Other specified noninfective gastroenteritis and colitis (principal); E87.1 Hypo-osmolality and hyponatremia; E87.8 Other disorders of electrolyte and fluid balance, not elsewhere classified; E87.6 Hypokalemia; R41.82 Altered mental status, unspecified; R53.1 Weakness; E86.0 Dehydration; F41.8 Other specified anxiety disorders; F32.89 Other specified depressive episodes; F10.10 Alcohol abuse, uncomplicated; R26.81 Unsteadiness on feet
CPT/HCPCS: 36415; 71045; 80048; 80053; 82607; 82728; 82746; 83540; 83735; 84132; 84295; 84466; 85025; 86140; 94760; 96365; 96367; 96374; 99283; 99284; A4222; S0170; J1630; J2060; J2405; J2560; J3411; J3475; J3480